=== PATIENT | female | born 2000 | race Caucasian/White ===

== ENCOUNTER 2019-05-05 22:05 | Emergency (ER) | payer OTHER ==
[2019-05-05] MEDS ORDERED: Ketorolac Tromethamine 30 MG/ML VIAL ONE (22:59)
[2019-05-05 23:04] LABS: #Eosinphils 0.1 thou/uL (0.0-0.7); #Monocytes 0.9 thou/uL (0.11-0.59); #Neutrophils 8.7 thou/uL (1.40-6.50); %Basophils 0.4 % (0.0-1.0); %Eosinophils 0.9 % (0.0-10.0); %Lymphocytes 17.2 % (28.0-48.0); %Monocytes 7.5 % (0.0-4.0); Hemoglobin 10.8 g/dL (12.0-16.0); Mean Corpuscular HGB CONC 33.4 g/dL (32.0-36.0); Mean Corpuscular Hemoglobin 27.8 pg (25.0-35.0); Mean Corpuscular Volume 83.2 fL (78.0-98.0); Mean Platelet Volume 8.1 fL (7.4-10.4); Platelet Count 194 thou/uL (130-400); RBC Distribution Width 14.9 % (11.5-14.5); Red Blood Cell (RBC) Count 3.89 mill/uL (4.00-5.20); White Blood Cell (WBC) Count 11.7 thou/uL (4.8-10.8)
[2019-05-05 23:25] LABS: ALT (SGPT) 9 U/L (8-55); AST (SGOT) 10 U/L (5-34); Albumin 3.6 g/dL (3.5-5.0); Alkaline Phosphatase 61 U/L (40-100); Anion Gap 13 mmol/L (10-20); BUN (Urea Nitrogen) 7 mg/dL (7.0-18.7); Bilirubin, Total 0.3 mg/dL (0.2-1.2); Calc. Creatinine Clearance 0 mL/min (70-130); Calcium 8.9 mg/dL (7.8-10.44); Carbon Dioxide 23 mmol/L (22-29); Chloride 102 mmol/L (98-107); Estimated GFR-MDRD Greater than 90; Globulin 3.2 g/dL (2.4-3.5); Glucose 88 mg/dL (70-105); Lipase 8 U/L (8-78); Potassium 3.5 mmol/L (3.5-5.1); Protein, Total 6.8 g/dL (6.0-8.3); Sodium 134 mmol/L (136-145)
[2019-05-05 23:43] LABS: Bacteria/HPF None Seen HPF (None Seen); Bilirubin Negative (Negative); Blood, Urine Negative (Negative); Clarity Turbid (Clear); Glucose, Urine (Dipstick) Normal (Negative); Leukocyte 500 Leu/uL (Negative); Nitrite Negative (Negative); Protein, Urine (Dipstick) 30 mg/dL (Neg-Trace); Squamous Epithelial 21-50 HPF (0-3); Urobilinogen 6 mg/dL (Less than 2); WBC/HPF Greater than 50 HPF (0-3)
[2019-05-05 23:46] LABS: Pregnancy Test - Urine (BHCG) Negative (Negative); Pregu Control Background? CLEAR/WHITE (CLR/WHITE); Pregu Control Bar Appear? YES (CONTROL BAR); Specific Gravity 1.028 (1.002-1.036)
--- NOTE | 2019-05-05 23:48 | ULT ---
US Gallbladder RUQ HISTORY: Right upper quadrant pain COMPARISON: None. FINDINGS: Real-time imaging of the right upper quadrant shows a normal-appearing gallbladder. The com mon duct is 4 mm. Visualized liver parenchyma shows no focal abnormalities. The pancreas and right kidney are normal in appearance. The technologist reports a negative ultrasound Barrios sign. IMPRESSION: Unremarkable right upper quadrant ultrasound.
[2019-05-05 23:49] LABS: RBC/HPF 0-3 HPF (0-3)
[2019-05-06] MEDS ORDERED: cefTRIAXone\\ROCEPHIN 1 GM VIAL ONE (00:06)
[2019-05-06] MEDS ORDERED: Azithromycin 250 MG TAB ONE (00:06)
[2019-05-06] MEDS ORDERED: Amoxicillin/Potassium Clav 250 MG TAB ONE (00:06)
[2019-05-06] MEDS ORDERED: Lidocaine 1% (PF) 30 ML VIAL ONE (00:07)
== END 2019-05-06 00:34 | disposition home or self-care (01) ==
LOC: ERS 22:05
DX: N39.0 Urinary tract infection, site not specified (principal); R10.11 Right upper quadrant pain; F41.9 Anxiety disorder, unspecified; F32.9 Major depressive disorder, single episode, unspecified; Z79.899 Other long term (current) drug therapy
CPT/HCPCS: 36415; 76705; 80053; 81003; 81015; 81025; 83690; 85025; 96372; J0696; J1885; J2001